=== PATIENT | female | born 1940 | race Caucasian/White ===

== ENCOUNTER → 2018-09-04 13:12 | Outpatient (CLI) | payer MEDICARE, OTHER, SELFPAY ==
--- NOTE | 2018-09-04 | DI.US.S_ITS ---
PROCEDURE: US ARTERIAL DUPLEX LE BI INDICATIONS: PERIPHERAL VASCULAR DISEASE, UNSPECIFIED TECHNIQUE: Color and pulse Doppler interrogation was performed of both lower extremity arterial systems, with image documentation. COMPARISON: [facility], , ARTERIAL LOW.EXTREM.BILATERAL, 09/27/2013, 14:02. FINDINGS: Right lower extremity: Common femoral artery: 64 cm/sec, with biphasic flow. Deep femoral artery: 86 cm/sec, with biphasic flow. Proximal superficial femoral artery: 72 cm/sec, with monophasic flow. Mid superficial femoral artery: 37 cm/sec, with monophasic flow. Distal superficial femoral artery: Is T5 cm/sec, with monophasic and retrograde flow. Popliteal artery: 59 cm/sec, with monophasic and retrograde flow. Posterior tibial artery: Not visualized. Anterior tibial artery/dorsalis pedis: 107 cm/sec, with monophasic flow. Right femoral popliteal bypass graft appears patent no anastomotic stricture seen. Mariscal-scale imaging description: Heavy scattered plaque. Left lower extremity: Common femoral artery: 155 cm/sec, with triphasic flow. Deep femoral artery: 135 cm/sec, with biphasic flow. Proximal superficial femoral artery: 122 cm/sec, with biphasic flow. Mid superficial femoral artery: 68 cm/sec, with biphasic flow. Distal superficial femoral artery: 46 cm/sec, with biphasic flow. Popliteal artery: 32 cm/sec, with biphasic flow. Posterior tibial artery: 17 cm/sec, with biphasic flow. Anterior tibial artery/dorsalis pedis: 64 cm/sec, with biphasic flow. Mariscal-scale imaging description: Heavy scattered plaque. IMPRESSION: 1. No anastomotic stricture and widely patent right femoral anterior tibial artery bypass graft. 2. Probable occlusion within the [place] right superficial femoral artery where retrograde flow is seen distally. 3. No hemodynamically significant stenosis seen within the left common femoral artery to the popliteal artery. 3. Bilateral small vessel disease. Dictated by: Keegan Rueda [facility] Interpreted: Esteban Manrique MD on 09/04/2018 at 17:07 Approved by: Esteban Manrique M.D. on 09/04/2018 at 17:14
== END ==
PROVIDERS: Family Provider Family Medicine; PCP Family Medicine; Visit Provider Family Medicine
DX: I73.9 Peripheral vascular disease, unspecified (principal)
CPT/HCPCS: 93925

== ENCOUNTER 2020-01-18 20:40 | Observation (INO) | payer MEDICARE, OTHER, SELFPAY ==
--- NOTE | 2020-01-18 20:51 | ED.GENADULT ---
HPI - General Adult General Chief complaint: Upper Respiratory Symptoms Stated complaint: something stuck in throat Time Seen by Provider: 01/18/20 20:45 Source: patient Mode of arrival: Ambulatory Limitations: no limitations History of Present Illness HPI narrative: 79-year-old female with a known history of reflux disease and also esophageal strictures. She states she has had her strictures dilated in the past with the last time being several years ago here for evaluation of approximately 4 days of which she thinks is food getting stuck in her esophagus. She states that it seems to have been occasional for the past 4 days. Does occur after she eats or drinks. She has periods of time in the past several days where she can not eat and drink without any problems. She states that this evening she took a piece of her 's chicken and felt like it got stuck in her mid esophagus. Since then she has had discomfort whenever she tries to drink anything. She can not swallow her saliva however she states that is very uncomfortable. She has no problems breathing. No abdominal pain. No other chest pain. Has not tried anything for her symptoms prior to arrival. Related Data Home Medications Medication Instructions Recorded Confirmed alprazolam 0.5 mg PO QIDP PRN #0 06/16/17 01/19/20 aspirin 81 mg PO QAM #0 06/16/17 01/19/20 colchicine 0.6 mg PO QAM #0 06/16/17 01/19/20 furosemide 20 mg PO QDAY #0 06/16/17 01/19/20 lansoprazole 30 mg PO QAM #0 06/16/17 01/19/20 levothyroxine 0.088 mg PO QAM #0 06/16/17 01/19/20 meloxicam [Mobic] 7.5 mg PO BID #0 06/16/17 01/19/20 omeprazole 20 mg PO BID #0 06/16/17 01/19/20 simvastatin 20 mg PO HS #0 06/16/17 01/19/20 spironolactone 50 mg PO QAM #0 06/16/17 01/19/20 ursodiol 300 mg PO BID #0 06/16/17 01/19/20 cyclobenzaprine 10 mg PO DAILY #0 06/27/17 01/19/20 multivitamin [Multiple Vitamins] 1 tab PO QDAY #0 06/27/17 01/19/20 Previous Rx's Medication Instructions Recorded hydrocodone-acetaminophen 1 - 2 tab PO Q4HP PRN #40 06/28/17 hydroxyzine pamoate 25 mg PO Q4HP PRN #20 cap 06/28/17 Allergies Allergy/AdvReac Type Severity Reaction Status Date / Time INGREDIENT: NKDA - NO KNOWN Allergy Unknown Uncoded 08/27/17 12:04 DRUG ALLERGIES Review of Systems Constitutional Constitutional: Denies fever(s) and Denies headache(s) ENT Ears, Nose, Mouth, and Throat: Denies headache(s) Cardiovascular Cardiovascular: Reports chest pain (Esophageal pain with eating) and Denies dyspnea Respiratory Respiratory: Denies cough and Denies dyspnea Gastrointestinal Gastrointestinal: Denies belching, Denies change in bowel habits and Reports vomiting (Vomiting somewhat after drinking) Musculoskeletal Musculoskeletal: Denies arthralgias and Denies myalgias Integumentary/Breasts Skin/Breast: Denies lesions and Denies rash Neurologic Neurologic: Denies behavioral changes and Denies headache(s) Psychiatric Psychiatric: Denies behavioral changes Hematologic/Lymphatic Hematologic/Lymphatic: Denies easy bleeding and Denies easy bruising Allergic/Immunologic Allergic/Immunologic: Denies urticaria Patient History Medical History Anxiety (Acute) Esophageal stricture (Acute) Gastroesophageal reflux disease (Acute) Hypothyroid (Acute) Social History household members: spouse Smoking Status: Former smoker alcohol intake: never Exam Initial Vital Signs Initial Vital Signs: Vital Signs Temperature 98 F 01/18/20 20:54 Pulse Rate 76 01/18/20 20:54 Respiratory Rate 20 01/18/20 20:54 Blood Pressure 202/84 H 01/18/20 20:54 Pulse Oximetry 99 01/18/20 20:54 Const General: cooperative and comfortable Limitations: mental status not altered HENID Head: normal to inspection and normocephalic Resp Effort & Inspection: normal respiratory effort Auscultation: clear to auscultation bilaterally Cardio Rate: regular rate Rhythm: regular rhythm GI Inspection: non-distended Palpation: soft, No firm and No tender Skin Lesions: no lesions Rashes: no rashes Neuro General: patient alert, patient awake and patient oriented x3 Cognition: normal cognition Speech: speech normal Motor: muscle tone normal throughout Extrem General: normal to inspection and capillary refill normal Psych Appearance: grossly normal and well kempt Scores GCS Mehran coma scale eye opening: Spontaneous Mehran coma scale verbal response: Orientated Mehran coma scale motor response: Obey commands Mehran coma scale total score: 15 Course Orders Ordered: ED Orders 01/18/20 21:04 EKG-12 Lead Stat 01/18/20 22:05 Basic Metabolic Panel Stat Complete Blood Count AUTO DIFF Stat 01/18/20 22:11 Consult to General Surgery Stat Sodium Chloride (Normal Saline 0.9%) 1,000 mls @ 125 mls/hr IV CONT RASHEEDA Last Admin: 01/19/20 01:45 Dose: 125 mls/hr Documented by: Infusion: 01/19/20 01:45 Dose: 0 mls/hr Documented by: Infusion: 01/19/20 00:29 Dose: 0 mls/hr Documented by: Admin: 01/18/20 22:37 Dose: 125 mls/hr Documented by: JHONNY Ondansetron HCl (Zofran) 4 mg IV Q4HR PRN PRN Reason: Nausea And Vomiting Last Admin: 01/18/20 22:37 Dose: 4 mg Documented by: JHONNY Discontinued Medications Glucagon (Glucagen) 1 mg IV NOW ONE Stop: 01/18/20 21:05 Last Admin: 01/18/20 21:27 Dose: 1 mg Documented by: JHONNY Vital Signs Vital signs: Vital Signs - 8 hr 01/18/20 20:54 01/18/20 22:03 Temperature 98 F Pulse Rate 76 82 Respiratory Rate 20 18 Blood Pressure 202/84 H 168/74 H Pulse Oximetry 99 100 Medical Decision Making Lab Data Lab results reviewed: Yes I reviewed the patient's lab results. Result diagrams: 01/18/20 22:05 01/18/20 22:05 Labs: Lab Results 01/18/20 01/18/20 Range/Units 22:05 22:05 WBC 8.8 (4.5-11.0) X10^3/uL RBC 4.05 (4.0-5.2) X10^6/uL Hgb 12.3 (12.0-16.0) g/dL Hct 37.6 (36-46) % MCV 93.0 (80-100) fL MCH 30.5 (26-34) PG MCHC 32.8 (30-36) % RDW 13.8 (11.6-14.8) % Plt Count 212 (150-400) X10^3/uL Neut % (Auto) 72.7 (50-75) % Lymph % (Auto) 16.0 L (25-40) % [place] % (Auto) 9.9 (3-14) % Eos % (Auto) 0.7 L (2-4) % Baso % (Auto) 0.7 (0-2) % Neut # (Auto) 6400 (0974-9659) /uL Lymph # (Auto) 1400 (1094-8274) /uL [place] # (Auto) 900 (0-900) /uL Eos # (Auto) 100 (0-450) /uL Baso # (Auto) 100 (0-100) /uL Sodium 135 L (137-145) mmol/L Potassium 4.5 (3.4-5.1) mmol/L Chloride 97 L (98-107) mmol/L Carbon Dioxide 30 (22-32) mmol/L BUN 31 H (7-17) mg/dL Creatinine 1.47 H (0.52-1.04) mg/dL Estimated GFR 34.4 L (>60) mL/min BUN/Creatinine Ratio 21.1 (6-22) Glucose 192 H (80-110) mg/dL Calcium 9.1 (8.4-10.2) mg/dL ECG Data Attestation: I personally reviewed and interpreted this ECG as follows: Prior ECG tracings: not available for review Interpretation: Sinus rhythm Ventricular rate is 72 First degree AV block. Oval 244 Incomplete right bundle-branch block No ST T wave changes MDM Narrative Medical decision making narrative: Patient maintaining airway. Patient is symptom free unless she tries to swallow anything. She is able to swallow however shortly after the process has fairly severe pain in her mid chest. She does spit up a small amount however it is less than the amount that she initially swallowed which makes me think there is a portion of the liquid that is reaching her stomach. Started an IV. Gave glucagon without any relief symptoms. Unsure if the patient actually has a food impaction or if this is just potentially a stricture in her esophagus. Unfortunately I feel that discharging the patient home with outpatient follow-up would most likely lead to her returning because I feel that it will be a difficult time for her to maintain her hydration given the amount of pain that she has with swallowing any liquids. I did discuss the case with Dr. Kimbrough with General surgery who will admit and come see the patient in the morning with anticipation of a endoscopy for further evaluation and treatment. Discussed this with the patient and her . They expressed understanding and agreement. Discharge Plan Departure Patient Disposition: Admitted as Observation Clinical Impression: Food impaction of esophagus Qualifiers: Encounter type: initial encounter Qualified Code(s): T18.128A - Food in esophagus causing other injury, initial encounter Discharge Date/Time: 01/19/20 00:48 Referrals: Westley Ramon MD [Primary Care Provider] - Admit Date/Time: 01/18/20 22:23 Admit Provider: Kentrell Kimbrough
[2020-01-18 20:54] VITALS: BP 202/84; PULSE 76; RESP 20; TEMP 36.6; O2SAT 99
[2020-01-18] MEDS: GLUCAGON,HUMAN RECOMBINANT 1 MG/ML VIAL IV (21:27)
[2020-01-18 22:03] VITALS: BP 168/74; PULSE 82; RESP 18; O2SAT 100
[2020-01-18] MEDS: SODIUM CHLORIDE 0.9% 1,000 ML 125 ML IV (22:37)
[2020-01-18] MEDS: ONDANSETRON 4 MG/2 ML INJ IV (22:37)
--- NOTE | 2020-01-18 22:37 | PC.NURSE ---
Patient states pain in chest is much better now. States she feels that the mass is now gone.
[2020-01-18 22:40] LABS: Add Manual Diff / Slide Review NO; Basophils Absolute Auto 100 /uL (0-100); Basophils Percent Auto 0.7 % (0-2); Eosinophils Absolute Auto 100 /uL (0-450); Eosinophils Percent Auto 0.7 % (2-4); Hematocrit 37.6 % (36-46); Hemoglobin 12.3 g/dL (12.0-16.0); Lymphocytes Absolute Auto 1400 /uL (1100-4500); Mean Corpuscular HGB Conc 32.8 % (30-36); Mean Corpuscular Hemoglobin 30.5 PG (26-34); Monocytes Absolute Auto 900 /uL (0-900); Monocytes Percent Auto 9.9 % (3-14); Neutrophils Absolute Auto 6400 /uL (1500-7000); Neutrophils Percent Auto 72.7 % (50-75); Platelet Count 212 X10^3/uL (150-400); Red Blood Cell Count 4.05 X10^6/uL (4.0-5.2); Red Cell Distribution Width 13.8 % (11.6-14.8); White Blood Cell Count 8.8 X10^3/uL (4.5-11.0)
[2020-01-18 22:49] LABS: BUN Creatinine Ratio 21.1 (6-22); Blood Urea Nitrogen 31 mg/dL (7-17); Calcium 9.1 mg/dL (8.4-10.2); Carbon Dioxide 30 mmol/L (22-32); Chloride 97 mmol/L (98-107); Estimated Glomerular Filt Rate 34.4 mL/min (>60); Glucose 192 mg/dL (80-110); HEMOLYSIS < 15 (0-50); Potassium 4.5 mmol/L (3.4-5.1); Sodium 135 mmol/L (137-145)
[2020-01-18 23:31] LABS: COVID19 -Nasal RAPID Negative (Negative)
[2020-01-19] VITALS (11 sets, daily range): BP systolic 99–179; BP diastolic 55–110; PULSE 61–82; RESP 16–20; TEMP 36.1–37.2; O2SAT 93–100; BMI 22.3
[2020-01-19] MEDS: SODIUM CHLORIDE 0.9% 1,000 ML 125 ML IV ×3 (01:45→12:27)
--- NOTE | 2020-01-19 11:13 | CM.DANOTE ---
DCP: Case received, EMR reviewed and met with patient. , Bautista, was also at bedside. Introduced self and role. Was able to obtain some information regarding patient's baseline activity level at home prior to hospitalization. DCP assessment completed with information currently available. Patient is a 79 year old female who admitted yesterday evening to the care of the hospitalist/surgical team. PCP: Dr. Ramon. Payer: confirmed: Medicare/ticketea. Patient came to the hospital via family vehicle secondary to difficulty swallowing. Patient indicated she felt that some food was stuck in her throat, and drinking water was causing chest pain. Patient has history of reflux disease as well as esophageal stricture. She is to be having an endoscopy today. Patient is alert and oriented. She resides in [place] with her spouse, Bautista. She stated that she does not drive, secondary to her glaucoma. She also stated, I have a cane and walker, but I mostly get around holding on to furniture in the house. P: DCP to continue to follow. She will be having her procedure today. She should be able to go home when she is medically stable Shannan Anand RN/Slurry Control Tender
--- NOTE | 2020-01-19 11:20 | PC.NURSE ---
Addendum entered by Sally Topete R.N. 01/19/20 14:28: Patients EGD will be done tomorrow at 1430. Given Metoprolol for high blood pressure. Patient is going to be on clear liquids until 0000 and then npo after midnight. Original Note: Patient is anxious but kind, she is cooperative with all care. Blood pressure 177 systolic x2. This may be due to patient being anxious. She asked for a muscle relaxer but she is npo. states that they will be doing an EGD on patient and then she will possibly be discharged home after. She is fine and visiting with her now.
--- NOTE | 2020-01-19 11:31 | P.HP_ITS ---
History of Present Illness History of Present Illness Date Patient Seen: 01/19/20 Time Patient Seen: 11:31 Chief complaint: something stuck in throat Narrative: This is a 79-year-old woman who is seen in consultation for an esophageal food impaction. She has a history of esophageal stricture had a dilation 5 years ago with good effect. During the past 1 week she has had multiple episodes of food becoming partially stuck within the esophagus. Last night she had an episode presented to the emergency room and was having significant dysphagia even to water. This morning she says actually she feels much better and that whenever was stuck has passed through, she is now able to take sips of water without pain. Patient History Medical History Anxiety (Acute) Esophageal stricture (Acute) Gastroesophageal reflux disease (Acute) Hypothyroid (Acute) Family & Social History Social History: household members spouse Prior Living Arrangements House Safety & Behavioral: Feels Safe in Current Yes Environment Been Physically Hurt or No Threatened By a Person Suicidal Ideation Description None Suicide Plan Description No Plan Tobacco & Substance use: Tobacco type cigarettes Smoking Status Former smoker alcohol intake never Substance Use Type does not use Meds Home Medications and Allergies Home Medications Medication Instructions Recorded Confirmed Type alprazolam 0.5 mg PO QIDP PRN #0 06/16/17 01/19/20 History aspirin 81 mg PO QAM #0 06/16/17 01/19/20 History colchicine 0.6 mg PO QAM #0 06/16/17 01/19/20 History furosemide 20 mg PO QDAY #0 06/16/17 01/19/20 History lansoprazole 30 mg PO QAM #0 06/16/17 01/19/20 History levothyroxine 0.088 mg PO QAM #0 06/16/17 01/19/20 History meloxicam [Mobic] 7.5 mg PO BID #0 06/16/17 01/19/20 History omeprazole 20 mg PO BID #0 06/16/17 01/19/20 History simvastatin 20 mg PO HS #0 06/16/17 01/19/20 History spironolactone 50 mg PO QAM #0 06/16/17 01/19/20 History ursodiol 300 mg PO BID #0 06/16/17 01/19/20 History cyclobenzaprine 10 mg PO DAILY #0 06/27/17 01/19/20 History multivitamin [Multiple Vitamins] 1 tab PO QDAY #0 06/27/17 01/19/20 History hydrocodone-acetaminophen 1 - 2 tab PO Q4HP PRN #40 06/28/17 Rx hydroxyzine pamoate 25 mg PO Q4HP PRN #20 cap 06/28/17 Rx Allergies Allergy/AdvReac Type Severity Reaction Status Date / Time INGREDIENT: NKDA - NO KNOWN Allergy Unknown Uncoded 08/27/17 12:04 DRUG ALLERGIES Review of Systems Review of Systems Narrative: A 10 point review of systems is negative except as noted in the HPI Exam Vital Signs (past 8 hours): - 01/19/20 08:00 01/19/20 09:11 Temperature 97.3 F L Pulse Rate 72 Respiratory Rate 16 Blood Pressure 177/74 H 179/81 H Pulse Oximetry 100 Oxygen Delivery Method Room Air Oxygen Flow Rate 0 Narrative Exam Narrative: General-no acute distress, elderly female HEENT-moist mucous membranes, no scleral icterus Neck-supple, no lymphadenopathy Chest- non labored respirations, clear to auscultation bilaterally Cardiac-regular rate no peripheral edema Abdomen-soft, nontender, non distended Extremities-warm, well perfused Neurological-alert and oriented, no focal deficits Objective Labs Result Diagrams: 01/18/20 22:05 01/18/20 22:05 Labs: Laboratory Results - last 24 hr 01/18/20 01/18/20 01/18/20 22:05 22:05 22:30 WBC 8.8 RBC 4.05 Hgb 12.3 Hct 37.6 MCV 93.0 MCH 30.5 MCHC 32.8 RDW 13.8 Plt Count 212 Neut % (Auto) 72.7 Lymph % (Auto) 16.0 L [place] % (Auto) 9.9 Eos % (Auto) 0.7 L Baso % (Auto) 0.7 Neut # (Auto) 6400 Lymph # (Auto) 1400 [place] # (Auto) 900 Eos # (Auto) 100 Baso # (Auto) 100 Sodium 135 L Potassium 4.5 Chloride 97 L Carbon Dioxide 30 BUN 31 H Creatinine 1.47 H Estimated GFR 34.4 L BUN/Creatinine Ratio 21.1 Glucose 192 H Calcium 9.1 COVID-19 PCR Negative Assessment & Plan Assessment & Plan narrative: 79-year-old woman admitted to the hospital with a symptomatic esophageal stricture. She had an episode of food impaction last night received Reglan in the emergency room and is now able to take sips of water without pain or dysphagia. I told her I recommend that we proceed with esophagoduodenoscopy and likely balloon dilatation. We discussed the technical nature of the procedure and its risks including bleeding infection perforation need for further procedure. Questions have been answered she is in agreement with this plan will schedule for this afternoon. If she does well postprocedure then she can go home later today. Quality VTE Deep Vein Thrombosis/Pulmonary Embolism Present on Admission: No
[2020-01-19] MEDS: METOPROLOL TARTRATE 5 MG/5 ML INJ IV (12:26)
[2020-01-19] MEDS: SODIUM CHLORIDE 0.9% 1,000 ML 100 ML IV ×2 (12:33→19:30)
--- NOTE | 2020-01-19 19:15 | PC.NURSE ---
ASHLEY Shift. pt AO and receptive to care. pt is calm but anxious and expresses anxiety by asking a lot of questions. in room and active in care. SBA/1PA to BSC. pt denying pain and reporting swallowing and eatting okay without difficulties but states she knows that she can only put small amounts of liquid in her mouth at a time and notices that the fluid may drip from the corners of her mouth if she drinks too much. No coughing with drinking or eating. HTN noted. NS infusing to Left forearm PIV at 100/hr. Plan is for an EGD tomorrow at 1430.
[2020-01-20] VITALS (15 sets, daily range): BP systolic 108–207; BP diastolic 61–114; PULSE 67–81; RESP 14–20; TEMP 36.3–36.9; O2SAT 92–100; BMI 22.3
[2020-01-20] MEDS: METOPROLOL TARTRATE 5 MG/5 ML INJ IV (05:01)
[2020-01-20] MEDS: SODIUM CHLORIDE 0.9% 1,000 ML 100 ML IV (06:01)
--- NOTE | 2020-01-20 06:42 | PC.NURSE ---
Metoprolol given for elevated blood pressure. Pre intermediate accountant BP 181/74. subsequent VS 207/91,201/109/202/110, 159/84. cuff placement changed rom wrist, to upper arm, to calf,and back to forearm.
--- NOTE | 2020-01-20 06:57 | PC.NURSE ---
Patient grew confused as the shift progressed. Had used the BSC at shift beginning with no problems. Mid shift patient stated she could not sit on the BSC because her clitoris was in the hat. Hat place in toilet, and patient escorted to BR. Complained that clitoris was still hitting the hat. Hat left in place, extra commode seat placed over the toilet, with plenty of room for voiding. Able to void. Hour or so later the patient was talking to her stating that she was naked from the waist down out in the corridor using the BSC, and that is where we put her. at the bedside, and saw patient was never out in the corridor voiding on a BSC. Patient talking to about various things and he kept telling her he did not know what she was talking about.
[2020-01-20] MEDS: HALOPERIDOL 5 MG/ML VIAL IV (10:23)
--- NOTE | 2020-01-20 13:01 | CM.DPC ---
DCP Cont: Checked in with patient in her room, , Bautista, was at bedside. She was sitting on her bedside commode asking for assistance. Went ahead and notified Melissa TORRES. Stated that patient has noted some confusion, easily distracted at times and repeating herself. They are attempting to get a urine sample to rule out any infections. She is still NPO, secondary to awaiting her procedure, EGD. P: DCP to continue to follow. Plan is still for home, could possibly discharge today after test. Shannan Anand RN/Oyster Worker
--- NOTE | 2020-01-20 13:27 | PC.NURSE ---
Patient was anxious this morning, and her states she woke up during the night with a hallucination and wanted to leave this morning and go home prior to her procedure. Dr. Kimbrough up to evaluate patient this morning, and ordered haldol 5mg IV (given as ordered) with good effect. Patient was able to relax and rest in bed. remains at bedside, he states I am used to helping her with her care. Notified by YEAST STACKER that patient had elevated BP upon her check, upon re assessment patient resting comfortably in bed and BP improved at 154/104 with HR of 83. Patient picked up for her procedure by preop RN.-
[2020-01-20] MEDS: fentaNYL 250 MCG/5 ML INJ IV ×2 (14:55→14:58)
[2020-01-20] MEDS: MIDAZOLAM 5 MG/5 ML VIAL IV ×4 (14:55→15:07)
--- NOTE | 2020-01-20 15:13 | P.OP.ENDO_ITS ---
Operative Date/Time/Diagnoses Date of procedure: 01/20/20 Time of procedure: 15:14 Pre-op diagnosis: Esophageal stricture Post-op diagnosis: other (Dysphagia) Procedure & Clinicians Study performed: Esophagoduodenoscopy Same procedure as scheduled: Yes Indications: 79-year-old woman with a history of reflux and esophageal stricture who had a balloon dilation 5 years ago presents with possible esophageal impaction Surgeon: Kentrell Kimbrough Procedure Notes SCOAP/Timeout: Performed Procedure in detail: Patient placed in left lateral decubitus position. Time out was performed. Procedural sedation was administered with Versed and Fentanyl. A bite block was placed. the scope was inserted into the mouth and advanced through the esophagus and into the stomach. It appeared the pylorus had been surgically removed, the duodenum was intubated and normal to the 2nd portion. The scope was retroflexed within the stomach and there was no hiatal hernia. No ulcers, or gastritis. The scope was withdrawn into the esophagus the Z line was seen at 35 cm from the incisions. There was a chronic [place] ring but it was not casuing obstruction. The scope passed very easily through it into the stomach. I placed a 18-20 mm H20 balloon dilator into the narrowing but at maximal dilation it was not even close to occluding the lumen. It was deflated. There was no [place]'s esophagitis or masses or strictures. Stomach was hermelinda ufflated and scope removed. Patient tolerated procedure well. Sedation minutes: 12 Findings: other findings (chronic esophageal scar at GE junction no obstruction) Specimen(s): none sent Complications: none Impression: No esophageal stricture Post-procedure Disposition: same day surgery
--- NOTE | 2020-01-20 15:25 | SUR.OPER ---
misc item was [id number]
--- NOTE | 2020-01-20 16:57 | PM.DS.1 ---
History of Present Illness History of Present Illness Chief complaint: something stuck in throat Narrative: This is a 79-year-old woman who is seen in consultation for an esophageal food impaction. She has a history of esophageal stricture had a dilation 5 years ago with good effect. During the past 1 week she has had multiple episodes of food becoming partially stuck within the esophagus. Last night she had an episode presented to the emergency room and was having significant dysphagia even to water. This morning she says actually she feels much better and that whenever was stuck has passed through, she is now able to take sips of water without pain. Discharge Providers Provider Date of admission: 01/18/20 22:23 Discharge Date: 01/20/20 Primary care physician: Westley Ramon MD Consults: 01/18/20 22:11 Consult to General Surgery Stat Comment: Consulting Provider: Kentrell Kimbrough Reason for consultation: admission Has provider been notified: Yes Discharge provider: Kentrell Kimbrough MD Summary Hospital Course Discharge Diagnosis: Dysphagia Esophageal stricture Hospital Course: Patient underwent an esophagoduodenoscopy on 01/20/2020. The study demonstrated that the gastroesophageal junction was widely open there was a chronic esophageal stricture but no dilation was required. Postprocedure her diet was advanced as tolerated and she is able to take soft food without nausea vomiting or discomfort. Stable for discharge home. Status at Discharge Cognitive/behavioral status at discharge: oriented Functional status at discharge: independent ambulation Exam Vital Signs (past 8 hours): - 01/20/20 12:00 01/20/20 13:38 01/20/20 15:21 Temperature 97.7 F 98.5 F 97.4 F L Pulse Rate 73 75 81 Respiratory Rate 15 16 20 Blood Pressure 182/74 H 186/72 H 154/114 H Pulse Oximetry 98 98 96 01/20/20 15:26 01/20/20 15:31 01/20/20 15:42 Temperature Pulse Rate 80 78 79 Respiratory Rate 14 14 20 Blood Pressure 163/69 H 140/93 H 152/61 H Pulse Oximetry 92 98 94 01/20/20 16:20 Temperature 97.9 F Pulse Rate 75 Respiratory Rate 18 Blood Pressure 171/84 H Pulse Oximetry 100 Oxygen Delivery Method Room Air Oxygen Flow Rate 2 Narrative Exam Narrative: General adult female alert no acute distress Chest nonlabored respirations Abdomen soft nontender nondistended Objective Labs Result Diagrams: 01/18/20 22:05 01/18/20 22:05 Discharge Plan Discharge Plan Patient Disposition: Home Discharge orders & Medications Prescriptions: Continued meloxicam [Mobic] 7.5 MG tablet 7.5 mg PO BID Qty: 0 RF: 0 colchicine 0.6 MG tablet 0.6 mg PO QAM Qty: 0 RF: 0 simvastatin 20 MG tablet 20 mg PO HS Qty: 0 RF: 0 lansoprazole 30 MG capsule,delayed release(DR/EC) 30 mg PO QAM Qty: 0 RF: 0 furosemide 20 MG tablet 20 mg PO QDAY Qty: 0 RF: 0 spironolactone 50 MG tablet 50 mg PO QAM Qty: 0 RF: 0 levothyroxine 88 MCG tablet 0.088 mg PO QAM Qty: 0 RF: 0 alprazolam 0.5 MG tablet 0.5 mg PO QIDP PRN (Reason: Anxiety) Qty: 0 RF: 0 omeprazole 20 MG capsule,delayed release(DR/EC) 20 mg PO BID Qty: 0 RF: 0 aspirin 81 MG tablet,delayed release (DR/EC) 81 mg PO QAM Qty: 0 RF: 0 ursodiol 300 MG capsule 300 mg PO BID Qty: 0 RF: 0 multivitamin [Multiple Vitamins] 1 EACH tablet 1 tab PO QDAY Qty: 0 RF: 0 cyclobenzaprine 10 MG tablet 10 mg PO DAILY Qty: 0 RF: 0 hydrocodone-acetaminophen 5 MG/325 MG tablet 1 - 2 tab PO Q4HP PRNQty: 40 RF: 0 hydroxyzine pamoate 25 MG capsule 25 mg PO Q4HP PRNQty: 20 RF: 0 Follow up/Referrals: Westley Ramon MD [Primary Care Provider] - Diet/Activity/Treatments Diet: Diet as Tolerated Discharge Data Primary Care Provider: Westley Ramon Attending Provider: Kentrell Kimbrough Admit Date/Time: 01/18/20 22:23 Quality VTE Deep Vein Thrombosis/Pulmonary Embolism Present on Admission: No
== END 2020-01-20 18:55 | disposition home or self-care (01) ==
LOC: ED 22:12 → AC 22:24
PROVIDERS: Admitting Provider Surgery; Emergency Provider Emergency Medicine; Family Provider Family Medicine; PCP Family Medicine; Referring Provider Emergency Medicine; Visit Provider Surgery
PROC: 0DJ08ZZ Inspection of Upper Intestinal Tract, Via Natural or Artificial Opening Endoscopic (ICD-10-PCS; CPT 43235; principal; 2020-01-20 14:30)
DX: R13.10 Dysphagia, unspecified (principal); K22.2 Esophageal obstruction; Z11.59 Encounter for screening for other viral diseases; F41.9 Anxiety disorder, unspecified; K21.9 Gastro-esophageal reflux disease without esophagitis; E03.9 Hypothyroidism, unspecified
CPT/HCPCS: 43249; 36415; 80048; 85025; 87635; 93005; 96361; 96374; 96375; 96376; 99284; G0378; J1610; J1630; J2250; J2405; J3010

== ENCOUNTER 2020-03-15 14:52 | Emergency (ER) | payer MEDICARE, OTHER, SELFPAY ==
[2020-01-19 00:58] VITALS: BMI 22.3
[2020-03-15 15:01] VITALS: BP 172/86; PULSE 69; RESP 18; TEMP 36.6; O2SAT 96
--- NOTE | 2020-03-15 15:37 | PC.NURSE ---
states she is not not having any difficulty with swallowing now. she reports that she is worried.
--- NOTE | 2020-03-15 15:41 | ED_ITS ---
HPI - Nausea/Vomiting/Diarrhea General Chief complaint: Shortness of Breath/Dyspnea Stated complaint: choking sensation Time Seen by Provider: 03/15/20 14:58 Source: patient Mode of arrival: Ambulatory Limitations: no limitations History of Present Illness HPI Narrative: 79-year-old female nonsmoker former smoker with history of esophageal foreign body presents with an episode of choking yesterday which has completely resolved. She is able to eat and drink without any difficulty now. She denies chest pain, SOB, fever, or chills. She has no symptoms whatsoever at this point. She hopes to get connected with a specialist who could help prevent this from happening again. Related Data Home Medications Medication Instructions Recorded Confirmed alprazolam 0.5 mg PO QIDP PRN #0 06/16/17 01/19/20 aspirin 81 mg PO QAM #0 06/16/17 01/19/20 colchicine 0.6 mg PO QAM #0 06/16/17 01/19/20 furosemide 20 mg PO QDAY #0 06/16/17 01/19/20 lansoprazole 30 mg PO QAM #0 06/16/17 01/19/20 levothyroxine 0.088 mg PO QAM #0 06/16/17 01/19/20 meloxicam [Mobic] 7.5 mg PO BID #0 06/16/17 01/19/20 omeprazole 20 mg PO BID #0 06/16/17 01/19/20 simvastatin 20 mg PO HS #0 06/16/17 01/19/20 spironolactone 50 mg PO QAM #0 06/16/17 01/19/20 ursodiol 300 mg PO BID #0 06/16/17 01/19/20 cyclobenzaprine 10 mg PO DAILY #0 06/27/17 01/19/20 multivitamin [Multiple Vitamins] 1 tab PO QDAY #0 06/27/17 01/19/20 Previous Rx's Medication Instructions Recorded hydrocodone-acetaminophen 1 - 2 tab PO Q4HP PRN #40 06/28/17 hydroxyzine pamoate 25 mg PO Q4HP PRN #20 cap 06/28/17 Allergies Allergy/AdvReac Type Severity Reaction Status Date / Time No Known Drug Allergies Allergy Verified 01/19/20 14:55 Review of Systems Constitutional Constitutional: Denies chills, Denies fatigue, Denies fever(s), Denies frequent falls, Denies lethargy and Denies weakness Eyes Eyes: Denies change in vision, Denies eye discharge, Denies irritation and Denies loss of vision ENT Ears, Nose, Mouth, and Throat: Denies change in voice, Denies dizziness, Denies neck pain, Denies sore throat and Denies throat swelling Comments: choking episode Cardiovascular Cardiovascular: Denies chest pain, Denies irregular heart rhythm, Denies lightheadedness, Denies palpitations, Denies dyspnea, Denies dyspnea on exertion and Denies orthopnea Respiratory Respiratory: Denies cough, Denies dyspnea, Denies dyspnea on exertion and Denies wheezing Gastrointestinal Gastrointestinal: Denies abdominal pain, Denies change in bowel habits, Denies diarrhea, Denies nausea and Denies vomiting Musculoskeletal Musculoskeletal: Denies neck pain and Denies numbness Integumentary/Breasts Skin/Breast: Denies pruritus, Denies erythema, Denies rash and Denies wounds Neurologic Neurologic: Denies behavioral changes, Denies confusion, Denies dizziness, Denies frequent falls, Denies loss of vision, Denies numbness and Denies weakness Psychiatric Psychiatric: Denies anxiety, Denies behavioral changes, Denies confusion, Denies depression, Denies homicidal ideation and Denies suicidal ideation Endocrine Endocrine: Denies fatigue, Denies flushing and Denies palpitations Hematologic/Lymphatic Hematologic/Lymphatic: Denies easy bruising Allergic/Immunologic Allergic/Immunologic: Denies urticaria, Denies throat swelling and Denies wheezing Patient History Medical History Anxiety (Acute) Esophageal stricture (Acute) Gastroesophageal reflux disease (Acute) Hypothyroid (Acute) Social History household members: spouse Smoking Status: Former smoker alcohol intake: never Smoking Status: Former smoker Substance Use Type: does not use Exam Narrative Exam Narrative: GEN: AOx3 and in mild distress EYES: Pupils are equal, round, and reactive to light and accommodation. Extraoccular muscles are intact bilaterally. There is no subconjunctival hemorrhage or exudate. ENT: airway patent, no FB noted. CHEST: Lungs are clear to auscultation bilaterally and free of wheezes, rales, or rhonchi. Heart rate is regular rhythm, there are no murmurs, clicks, rubs, or gallops. There is no chest wall tenderness. ABD: Abdomen is soft and nontender. There is no guarding or rebound. Bowel sounds are normal in all 4 quadrants. There is no mass or organomegaly. EXT: Full painless ROM of all extremities with no loss of sensation or strength. SKIN: Warm, pink, and dry. No erythema or rash Initial Vital Signs Initial Vital Signs: Vital Signs Temperature 97.8 F 03/15/20 15:01 Pulse Rate 69 03/15/20 15:01 Respiratory Rate 18 03/15/20 15:01 Blood Pressure 172/86 H 03/15/20 15:01 Pulse Oximetry 96 03/15/20 15:01 Course Vital Signs Vital signs: Vital Signs - 8 hr 03/15/20 15:01 Temperature 97.8 F Pulse Rate 69 Respiratory Rate 18 Blood Pressure 172/86 H Pulse Oximetry 96 Discharge Plan Departure Patient Disposition: Home Clinical Impression: Food impaction of esophagus Qualifiers: Encounter type: initial encounter Qualified Code(s): T18.128A - Food in esophagus causing other injury, initial encounter Discharge Date/Time: 03/15/20 15:45 Instructions: DI for Removal of Foreign Body From Esophagus Activity Restrictions/Additional Instructions: *You have been diagnosed with [ possible esophageal foreign body resolved, rather likely given your history ] *What to do: *Take medications as directed *Follow up with Dr. Kimbrough on FridayMarch 22 at 1115 at [facility] *Return to ER if you should have any new, worsening or concerning symptoms Prescriptions: No Action meloxicam [Mobic] 7.5 MG tablet 7.5 mg PO BID Qty: 0 RF: 0 colchicine 0.6 MG tablet 0.6 mg PO QAM Qty: 0 RF: 0 simvastatin 20 MG tablet 20 mg PO HS Qty: 0 RF: 0 lansoprazole 30 MG capsule,delayed release(DR/EC) 30 mg PO QAM Qty: 0 RF: 0 furosemide 20 MG tablet 20 mg PO QDAY Qty: 0 RF: 0 spironolactone 50 MG tablet 50 mg PO QAM Qty: 0 RF: 0 levothyroxine 88 MCG tablet 0.088 mg PO QAM Qty: 0 RF: 0 alprazolam 0.5 MG tablet 0.5 mg PO QIDP PRN (Reason: Anxiety) Qty: 0 RF: 0 omeprazole 20 MG capsule,delayed release(DR/EC) 20 mg PO BID Qty: 0 RF: 0 aspirin 81 MG tablet,delayed release (DR/EC) 81 mg PO QAM Qty: 0 RF: 0 ursodiol 300 MG capsule 300 mg PO BID Qty: 0 RF: 0 multivitamin [Multiple Vitamins] 1 EACH tablet 1 tab PO QDAY Qty: 0 RF: 0 cyclobenzaprine 10 MG tablet 10 mg PO DAILY Qty: 0 RF: 0 hydrocodone-acetaminophen 5 MG/325 MG tablet 1 - 2 tab PO Q4HP PRNQty: 40 RF: 0 hydroxyzine pamoate 25 MG capsule 25 mg PO Q4HP PRNQty: 20 RF: 0 Referrals: Westley Ramon MD [Primary Care Provider] - Kentrell Kimbrough MD [Physician] -
== END 2020-03-15 15:45 | disposition home or self-care (01) ==
PROVIDERS: Emergency Provider Emergency Medicine; Family Provider Family Medicine; PCP Family Medicine
DX: T18.128A Food in esophagus causing other injury, initial encounter (principal)
CPT/HCPCS: 99281